=== PATIENT | male | born 1955 | race Asian ===

== ENCOUNTER 2019-02-02 10:25 | Emergency (ER) | payer OTHER ==
[2019-02-02 10:33] VITALS: BP 122/74; PULSE 59; TEMP 98.5; BMI 26.5
[2019-02-02] MEDS ORDERED: ONDANSETRON 4 MG/2 ML VIAL ONE ×2 (11:19→12:09)
[2019-02-02] MEDS ORDERED: SODIUM CHLORIDE 1,000 ML IV STA (11:23)
[2019-02-02] MEDS ORDERED: ONDANSETRON 4 MG/2 ML VIAL IVPUSH ONE ×2 (11:45→12:32)
[2019-02-02 12:00] LABS: BASO % 0.5 % (0-2.0); EOS % 0.5 % (0-4.5); HEMATOCRIT 45.2 % (35.4-49); LYMPH % 19.1 % (8-40); MCH 30.9 pg (25.7-33.7); MCHC 35.3 g/dl (32.0-35.9); MEAN CELL VOLUME 87.5 fl (80-96); MEAN PLT VOLUME 7.3 fl (7.5-11.1); MONO % 3.6 % (3.8-10.2); NEUT % 76.3 % (42.8-82.8); PLATELET COUNT 236 K/MM3 (134-434); RBC 5.16 M/mm3 (4.00-5.60); RDW 13.7 % (11.9-15.9); WHITE BLOOD COUNT 10.2 K/mm3 (4.0-10.0)
--- NOTE | 2019-02-02 12:01 | PDOC ---
History of Present Illness - General Chief Complaint: Lightheaded Stated Complaint: NAUSEA/DIZZINESS Time Seen by Provider: 02/02/19 10:45 History Source: Patient Exam Limitations: No Limitations - History of Present Illness Initial Comments: 02/02/19 11:49 63 yo male pmh of HTN and HLD presents to the ED with 1 day of dizziness and NB/ NB vomiting. Pt states he woke up out of sleep around 3 am today very hot and dizzy with 4-5 NB/NB episodes of vomiting later. Pt currently nauseas and dizzy , denies warmth, CP, SOB, back pain or other atypical ACS s/s, GONGORA, changes in vision, focal weakness or sensory changes. Denies sick contacts or eating new foods but does admit to cold s/s 1 week ago that have resolved, no ear pain or discharge. Pt also admits to coming back from a recent trip from [place] 1 month ago and has been healthy ever since. Past History - Past Medical History Allergies/Adverse Reactions: Allergies Allergy/AdvReac Type Severity Reaction Status Date / Time No Known Allergies Allergy Verified 02/02/19 10:30 Home Medications: Ambulatory Orders Amlodipine Besylate 10 mg PO DAILY 02/02/19 Ezetimibe 10 mg PO DAILY 02/02/19 Meclizine HCl [Antivert -] 25 mg PO TID #21 tablet 02/02/19 Ondansetron [Zofran *Odt*] 8 mg SL BID #10 od.tablet 02/02/19 COPD: No HTN: Yes - Suicide/Smoking/Psychosocial Hx Smoking History: Unknown if ever smoked Hx Alcohol Use: No Drug/Substance Use Hx: No Review of Systems - Review of Systems Constitutional: No: Chills, Fever *Physical Exam - Vital Signs Last Vital Signs Temp Pulse Resp BP Pulse Ox 98.5 F 59 L 18 122/74 99 02/02/19 10:25 02/02/19 10:25 02/02/19 10:25 02/02/19 10:25 02/02/19 11:13 Moderate Sedation - Procedure Monitoring Vital Signs: Procedure Monitoring Vital Signs Temperature 98.5 F 02/02/19 10:25 Pulse Rate 59 L 02/02/19 10:25 Respiratory Rate 18 02/02/19 10:25 Blood Pressure 122/74 02/02/19 10:25 O2 Sat by Pulse Oximetry (%) 99 02/02/19 11:13 ED Treatment Course - LABORATORY CBC & Chemistry Diagram: 02/02/19 11:34 02/02/19 11:34 *DC/Admit/Observation/Transfer Diagnosis at time of Disposition: Vertigo - Discharge Dispostion Disposition: HOME - Prescriptions Prescriptions: Meclizine HCl [Antivert -] 25 mg PO TID #21 tablet Ondansetron [Zofran *Odt*] 8 mg SL BID #10 od.tablet - Referrals Referrals: Kristina Medina MD [Primary Care Provider] - - Patient Instructions Printed Discharge Instructions: DI for Vertigo Additional Instructions: Please see your primary Doctor within the next 48 hours. Take the medication Meclizine for vertigo and Zofran for nausea as prescribed. Return to the ER for new or concerning symptoms including but not limited to: severe head aches, changes in vision, confusion, changes in speech, weakness or sensory changes on 1 side of your body. Thank you - Post Discharge Activity
[2019-02-02] MEDS ORDERED: MECLIZINE HCL 25 MG TABLET (FP) PO ONE (12:08)
[2019-02-02] MEDS ORDERED: MECLIZINE HCL 25 MG TABLET (FP) ONE (12:09)
[2019-02-02 12:40] LABS: ALBUMIN 4.1 g/dl (3.4-5.0); ALK PHOS 69 U/L (45-117); ANION GAP 6 MMOL/L (8-16); BILIRUBIN,TOTAL 0.2 mg/dL (0.2-1); BLOOD UREA NITROGEN 9 mg/dL (7-18); CALCIUM 8.5 mg/dL (8.5-10.1); CHLORIDE 104 mmol/L (98-107); CO2 28 mmol/L (21-32); CREATININE 0.8 mg/dL (0.55-1.3); GLUCOSE,RANDOM 152 mg/dL (74-106); LIPASE 72 U/L (73-393); POTASSIUM 3.9 mmol/L (3.5-5.1); SGOT/AST 28 U/L (15-37); SGPT/ALT 35 U/L (13-61); SODIUM 138 mmol/L (136-145)
--- NOTE | 2019-02-02 12:44 | PDOC ---
Attending Attestation - Resident Resident Name: John Lau - ED Attending Attestation I have performed the following: I have examined & evaluated the patient, The case was reviewed & discussed with the resident, I agree w/resident's findings & plan - HPI HPI: 02/02/19 12:36 63-year-old male with history of hypertension, high cholesterol presents with vertigo/nausea/vomiting. Patient was in his usual state of normal health, awoke at 3 AM with vertigo and nausea, intermittent since then. Each episode lasts 1- 2 minutes then resolves, but continues occurring intermittently. No headache, no ear ringing, no vision change/speech change/focal weakness, when asymptomatic has no difficulty ambulating or coordinating movements. Has had similar episodes in the past which have resolved spontaneously after a few hours, never sought medical attention the past. Had URI symptoms about a week ago of nasal congestion and rhinorrhea. No neck pain, no cardiopulmonary complaints. - Physicial Exam PE: 02/02/19 12:39 Vital signs stable Lying in stretcher, alert, speech coherent TMs clear bilaterally No audible carotid bruit NEURO: Mental status: The patient is alert and oriented x3. Cranial nerves: Cranial nerves II through XII are intact Motor: The upper extremities are 5 over 5 in all muscle groups. The lower extremities are 5 over 5 in all muscle groups. No pronator drift. Sensation: Sensation is intact to light touch throughout. Cerebellar: Rbrteu-yxywlg-whig is normal in both upper extremities. Heel-knee- huang is normal in both lower extremities. Vertigo reproduced with rightward head rotation. Reflexes: 2+ and symmetric in the upper and lower extremities. Gait: Normal. Heel and toe walking are normal. Tandem gait is normal. - Medical Decision Making 02/02/19 12:41 63-year-old male with hypertension, high cholesterol presents with episodic vertigo since 3 AM, seems positional in nature and reproducible on examination. No evidence of infectious process, despite risk factors seems less consistent with central etiology given the intermittent and positional nature. Also, he has had similar episodes in the past which have spontaneously resolved on several occasions. Check CT head Check labs Trial of antiemetics, meclizine Reassess Heart Score/ECG Review #1 ECG reviewed & interpreted by me at: 10:31 General ECG Interpretation: Sinus Rhythm, Normal Rate (62), Normal Intervals ( qtc 444), No acute ischemic changes
--- NOTE | 2019-02-02 17:56 | EKG ---
Test Reason : Blood Pressure : / mmHG Vent. Rate : 062 BPM Atrial Rate : 062 BPM P-R Int : 162 ms QRS Dur : 072 ms QT Int : 438 ms P-R-T Axes : 068 046 041 degrees QTc Int : 444 ms NORMAL SINUS RHYTHM NORMAL ECG NO PREVIOUS ECGS AVAILABLE Confirmed by MD ANDRE, RAYNA ([id number]) on 02/02/2019 5:56:11 PM Referred By: Confirmed By:RAYNA POWELL MD
== END 2019-02-02 14:10 | disposition home or self-care (01) ==
LOC: JER 10:25
PROC: 3E0337Z Introduction of Electrolytic and Water Balance Substance into Peripheral Vein, Percutaneous Approach (ICD-10-PCS; principal; 2019-02-02)
PROC: 3E033GC Introduction of Other Therapeutic Substance into Peripheral Vein, Percutaneous Approach (ICD-10-PCS; 2019-02-02)
DX: R42 Dizziness and giddiness (principal); I10 Essential (primary) hypertension; E78.5 Hyperlipidemia, unspecified
CPT/HCPCS: 36415; 70450-TC; 80053; 82550; 82553; 83690; 84484; 85025; 93005; 93010; 99284-25; J7030